=== PATIENT | male | born 1965 | race Caucasian/White ===

== ENCOUNTER 2019-03-28 08:01 | Day surgery (SDC) | payer OTHER ==
[~2019-03-28] VITALS: Ht 180 cm; Wt 99.1 kg
[~2019-03-28 08:01] MED LIST: LISI20 PO; NAPR550 PO; OXYACE5T PO; ROSU10TA PO; RXNAPNA550 PO; RXOXYACE PO; THERA1 EACH PO
--- NOTE | 2019-03-28 08:50 | NUR ---
Ambulatory in Day Surgery History, Chart, Medications and Allergies reviewed before start of procedure.Lungs clear T/O to Auscultation. Patient reports completing Chlorhexadine shower X2 prior to admission to hospital.Surgical site prepped with 2% Chlorhexidine cloth wipe.
--- NOTE | 2019-03-29 08:16 | NUR ---
03/29/19 0816 Sita Diaz VERIFICATIONS: EDIT CHART.
== END 2019-03-28 11:13 | disposition home or self-care (01) ==
LOC: ORSCMMR 08:01 → ORD 09:30 → ORSCMMR 11:13
PROVIDERS: Surgery
PROC: 0JBF0ZZ Excision of Left Upper Arm Subcutaneous Tissue and Fascia, Open Approach (ICD-10-PCS; principal; 2019-03-28 09:30)
DX: D17.39 Benign lipomatous neoplasm of skin and subcutaneous tissue of other sites (principal); I10 Essential (primary) hypertension; Z79.899 Other long term (current) drug therapy
CPT/HCPCS: 88304; 93005; 93010; J0330; J0690; J1100; J1885; J2250; J2405; J2704; J3010; J7120